=== PATIENT | female | born 1970 | race Caucasian/White ===

== ENCOUNTER 2017-07-22 22:38 | Emergency (ER) | payer OTHER ==
[2017-07-22 22:44] VITALS: BP 110/57
--- NOTE | 2017-07-22 22:52 | EDPHY ---
H & P Time Seen by Provider: 07/22/17 22:51 HPI/ROS: CHIEF COMPLAINT: Right calf pain HISTORY OF PRESENT ILLNESS: 47-year-old female complaining of acute right calf pain after she had gone for run today, was then stepping down and felt immediate pain to her right proximal calf. She has reproducible pain with palpation at same location and reproducible pain with dorsiflexion or plantar flexion. No direct trauma or fall . No fluoroquinolone use in the past year PHYSICAL EXAM (Prior to examination, patient consented to physical exam, hands were washed and my usual and customary physical exam procedures followed) 1) GENERAL: Well-developed, well-nourished, alert and oriented. Appears to be in no acute distress. 2) HEAD: Normocephalic 3) HEENT: Pupils equal, round, reactive to light bilaterally. 4) LUNGS: Breathing comfortably. 5) MUSCULOSKELETAL: Tender to palpation and visible asymmetrical deformity in the location of the head of the gastrocnemius. proximal tibia and fibula nontender .5th MT nontender negative [place] test, compartments soft. Achilles tendon has normal anatomic landmarks no step-off no crepitus. 6) SKIN: Intact. No discoloration. 7) VASCULAR: DP,PT pulses and cap refill present and brisk DIFFERENTIAL DIAGNOSIS: in no particular order including but not limited to fracture, muscle tear , Achilles tendon tear compartment syndrome Procedure: Crutches indications for crutch use discussed with patient. Patient fitted for crutches by ER staff. Observed ambulating with crutches. I think the patient has the capacity to safely use crutches. Usual and customary crutch walking precautions provided Procedure: Splint A madeleine boot splint was applied by ER smog technician. After application of the splint I returned and re-examined the patient. The splint was adequately immobilizing the joint and distal to the splint the patient's circulation and sensation were intact. Patient shows no signs of compartment syndrome. Was given orthopedic precautions. Smoking Status: Never smoked Constitutional: Initial Vital Signs Temperature (C) 36.6 C 07/22/17 22:40 Heart Rate 74 07/22/17 22:40 Respiratory Rate 18 07/22/17 22:40 Blood Pressure 110/57 L 07/22/17 22:40 O2 Sat (%) 94 07/22/17 22:40 O2 Delivery Mode Room Air Allergies/Adverse Reactions: No Known Allergies Allergy (Unverified 07/22/17 22:44) Home Medications: Medication Instructions Recorded Hydrocodone/APAP 5/325 [Frazer 1 tab PO Q6 PRN #10 tab 07/22/17 5/325 (RX)] Sertraline HCl [Zoloft 50mg (*)] 50 mg PO DAILY 07/22/17 traZODone [traZODONE 50MG (*)] 50 mg PO HS 07/22/17 MDM/Departure - MDM ED Course/Re-evaluation: More than likely head of gastrocnemius muscle muscle tear or rupture. Doubt compartment syndrome. Doubt Achilles tendon rupture. Doubt osseous injury. Plan will be splint, elevation, usual customary orthopedic precautions instructions, follow up with Orthopedics on Tuesday (today is Tuesday). She feels comfortable with this plan. I saw this patient independently based on established practice protocols. Care of patient under supervision of secondary supervising physician Dr Mac Ibarra. - Depart Disposition: Home, Routine, Self-Care Clinical Impression: Right calf strain Condition: Good Instructions: Hydrocodone/Acetaminophen (By mouth), Muscle Strain (ED) Additional Instructions: Return to the ER immediately if you experience discoloration, have worsening pain, numbness, tingling, or any other symptoms that concern you. If you received x-rays in the emergency department today, be advised, that ligamentous , tendon, muscular, and other non-bony injury cannot be fully ruled out. Try to keep your affected extremity elevated above the level of your chest, and keep cold packs on the affected area, for the next 48 hours. Prescriptions: Hydrocodone/APAP 5/325 [Frazer 5/325 (RX)] 1 tab PO Q6 PRN #10 tab PRN Reason: Pain, Severe Referrals: Carlitos Sherman MD [Medical Doctor] - 07/25/17
[2017-07-22] MEDS ORDERED: HYDROCOD/APAP 5/325 PREPACK#6 BTL TAKEHOME ONE (23:23)
[2017-07-22] MEDS ORDERED: HYDROCODONE/APAP 5/325 TAB ONE (23:27)
[2017-07-22] MEDS ORDERED: HYDROCODONE/APAP 5/325 TAB PO ONE (23:28)
== END 2017-07-22 23:42 | disposition home or self-care (01) ==
DX: S86.911A Strain of unspecified muscle(s) and tendon(s) at lower leg level, right leg, initial encounter (principal); X58.XXXA Exposure to other specified factors, initial encounter
CPT/HCPCS: L4386